=== PATIENT | female | born 1990 | race Two or more races ===

== ENCOUNTER → 2020-01-27 | Outpatient (CLI) | payer MEDICAID, OTHER ==
[2015-04-03 11:30] VITALS: BP 100/73
[~2020-01-27] MED LIST: HYDR-3164 PO; NAPR500T8 PO
--- NOTE | 2020-01-27 16:53 | RAD ---
EXAM: Ultrasound OB Greater than 14 weeks INDICATION: Reason: SIZE AND DATES / Spl. Instructions: / History: TECHNIQUE: Real-time obstetrical ultrasound was performed with permanent freeze-frame documentation. COMPARISON: None. FINDINGS: POSITION: Breech HEART RATE: 1 53 bpm RENE: Normal cm PLACENTA: Anterior grade 1 CERVICAL LENGTH: 3.8 cm MATERNAL UTERUS: Unremarkable. MATERNAL ADNEXA: Unremarkable. AGE/DATES: Gestational Age by LMP: 24 weeks 0 days Gestation Age by US: 24 weeks 1 day EDC by LMP: May 18, 2020 EDC by US: May 17, 2020 WEIGHT: 689 grams +/- 102 grams PERCENTILE WEIGHT: 48%. BIOMETRIC PARAMETERS: BPD: 5.7 cm corresponding with 23 weeks 2 days HC: 22.0 cm corresponding with 24 weeks 1 day AC: 19.9 cm corresponding with 24 weeks 4 days FL: 4.4 cm corresponding with 24 weeks 2 days ANATOMY: CARDIAC: Normal four chamber heart. Normal right and left ventricular outflow tracts. UMBILICAL CORD: Normal 3 vessel cord. Normal cord insertion. BRAIN: Unremarkable. NOSE/LIPS: Unremarkable. SPINE: Unremarkable. EXTREMITIES: Unremarkable. STOMACH: Unremarkable. KIDNEYS: Unremarkable. BLADDER: Unremarkable. IMPRESSION: Normal OB ultrasound demonstrating a single viable fetus in breech position. Estimated gestational age of 24 weeks 1 day and EDC of May 17, 2020. Electronically signed by: Brian Tatum MD (01/27/2020 4:50 PM) [id number]
== END | disposition home or self-care (01) ==
LOC: US 10:12
PROVIDERS: ATTEND Obstetrics & Gynecology
DX: O26.842 Uterine size-date discrepancy, second trimester (principal); Z3A.24 24 weeks gestation of pregnancy
CPT/HCPCS: 76805

== ENCOUNTER 2020-06-20 22:45 | Emergency (ER) | payer OTHER ==
[~2020-06-20] VITALS: Ht 160 cm; Wt 61.4 kg
[2020-06-20] MEDS ORDERED: ONDANSETRON PF 4 MG/2 ML VIAL. IVP ONE (23:45)
[2020-06-20] MEDS ORDERED: IBUPROFEN 400 MG TABLET. PO ONE (23:45)
[2020-06-20] MEDS ORDERED: IV NORMAL SALINE 1000ML BAG 1,000 ML IV SCH (23:45)
[2020-06-20 23:49] LABS: BILIRUBIN,URINE NEGATIVE (NEG); CLARITY,URINE CLEAR; COLOR,URINE YELLOW; NITRITE,URINE NEGATIVE (NEG); PROTEIN,URINE NEGATIVE (NEG-TRACE); UROBILINOGEN,URINE 0.2 mg/dL (0.2 mg/dL)
[2020-06-20 23:57] LABS: BACTERIA,URINE MOD /HPF (0-FEW); RBC,URINE 0 /HPF (0-2); WBC,URINE >40 /HPF (0-4)
--- NOTE | 2020-06-21 00:01 | PHYS DOC ---
Past Medical History Past Medical History: No Pertinent History Past Surgical History: No Surgical History Smoking Status: Never Smoker Alcohol Use: None Adult General Chief Complaint Chief Complaint: FEVER HPI HPI Patient is a 29 approximately 1-1/2 months now presenting the emergency department complaint of new onset of flulike illness. Patient states that over the last 3 days she developed worsening sensation of generalized fatigue, nausea without vomiting or diarrhea. During that time she also deve loped mild left-sided headache and nasal congestion. Over the last 24 hours he developed a sensation of right lower quadrant abdominal pain. Does admit to subjective fever and chills at home. Denies any dizziness or lightheadedness. Review of Systems Review of Systems Constitutional: Denies fever or chills [] Eyes: Denies change in visual acuity, redness, or eye pain [] HENT: Denies nasal congestion or sore throat [] Respiratory: Denies cough or shortness of breath [] Cardiovascular: No additional information not addressed in HPI [] GI: Denies abdominal pain, nausea, vomiting, bloody stools or diarrhea [] : Denies dysuria or hematuria [] Musculoskeletal: Denies back pain or joint pain [] Integument: Denies rash or skin lesions [] Neurologic: Denies headache, focal weakness or sensory changes [] Endocrine: Denies polyuria or polydipsia [] All other systems were reviewed and found to be within normal limits, except as documented in this note. Current Medications Current Medications Current Medications Medications (Trade) Dose Ordered Sig/Althea Start Time Stop Time Status Last Admin Dose Admin Ibuprofen (Motrin) 400 mg 1X ONCE 06/20/20 23:45 06/20/20 23:46 DC 06/21/20 00:19 400 MG Ondansetron HCl (Zofran) 4 mg 1X ONCE 06/20/20 23:45 06/20/20 23:46 DC 06/21/20 00:20 4 MG Sodium Chloride 1,000 ml @ 1,000 mls/hr Q1H 06/20/20 23:45 06/21/20 00:44 DC 06/21/20 00:19 1,000 MLS/HR Allergies Allergies Allergies Coded Allergies Type Severity Reaction Last Updated Verified No Known Drug Allergies 04/01/15 No Physical Exam Physical Exam Constitutional: Well developed, well nourished, no acute distress, non-toxic appearance. [] HENT: Normocephalic, atraumatic, bilateral external ears normal, oropharynx moist, no oral exudates, nose normal. [] Eyes: PERRLA, EOMI, conjunctiva normal, no discharge. [] Neck: Normal range of motion, no tenderness, supple, no stridor. [] Cardiovascular:Heart rate regular rhythm, no murmur [] Lungs & Thorax: Bilateral breath sounds clear to auscultation [] Abdomen: Bowel sounds normal, soft, very mild right upper quadrant tenderness, no masses, no pulsatile masses. [] Skin: Warm, dry, no erythema, no rash. [] Back: No tenderness, no CVA tenderness. [] Extremities: No tenderness, no cyanosis, no clubbing, ROM intact, no edema. [] Neurologic: Alert and oriented X 3, normal motor function, normal sensory function, no focal deficits noted. [] Psychologic: Affect normal, judgement normal, mood normal. [] Current Patient Data Vital Signs Vital Signs Date Time Temp Pulse Resp B/P (MAP) Pulse Ox O2 Delivery O2 Flow Rate FiO2 06/21/20 00:33 117 18 111/73 (86) 100 Room Air 06/20/20 23:35 102.7 102.7 Lab Values Laboratory Tests Test 06/20/20 23:41 06/20/20 23:45 06/21/20 00:25 Urine Collection Type Unknown Urine Color Yellow Urine Clarity Clear Urine pH 6.0 (<5.0-8.0) Urine Specific [place] <=1.005 (1.000-1.030) Urine Protein Negative mg/dL (NEG-TRACE) Urine Glucose (UA) Negative mg/dL (NEG) Urine Ketones (Stick) Negative mg/dL (NEG) Urine Blood Trace (NEG) Urine Nitrite Negative (NEG) Urine Bilirubin Negative (NEG) Urine Urobilinogen Dipstick 0.2 mg/dL (0.2 mg/dL) Urine Leukocyte Esterase Moderate (NEG) Urine RBC 0 /HPF (0-2) Urine WBC >40 /HPF (0-4) Urine Squamous Epithelial Cells Mod /LPF Urine Bacteria Mod /HPF (0-FEW) Urine Mucus Mod /LPF POC Urine HCG, Qualitative Hcg negative (Negative) White Blood Count 11.7 x10^3/uL (4.0-11.0) H Red Blood Count 5.30 x10^6/uL (3.50-5.40) Hemoglobin 13.1 g/dL (12.0-15.5) Hematocrit 40.4 % (36.0-47.0) Mean Corpuscular Volume 76 fL (79-100) L Mean Corpuscular Hemoglobin 25 pg (25-35) Mean Corpuscular Hemoglobin Concent 32 g/dL (31-37) Red Cell Distribution Width 18.9 % (11.5-14.5) H Platelet Count 210 x10^3/uL (140-400) Neutrophils (%) (Auto) 88 % (31-73) H Lymphocytes (%) (Auto) 5 % (24-48) L Monocytes (%) (Auto) 7 % (0-9) Eosinophils (%) (Auto) 0 % (0-3) Basophils (%) (Auto) 1 % (0-3) Neutrophils # (Auto) 10.2 x10^3/uL (1.8-7.7) H Lymphocytes # (Auto) 0.6 x10^3/uL (1.0-4.8) L Monocytes # (Auto) 0.8 x10^3/uL (0.0-1.1) Eosinophils # (Auto) 0.0 x10^3/uL (0.0-0.7) Basophils # (Auto) 0.1 x10^3/uL (0.0-0.2) Platelet Estimate Pending Sodium Level 138 mmol/L (136-145) Potassium Level 3.1 mmol/L (3.5-5.1) L Chloride Level 103 mmol/L (98-107) Carbon Dioxide Level 24 mmol/L (21-32) Anion Gap 11 (6-14) Blood Urea Nitrogen 6 mg/dL (7-20) L Creatinine 0.9 mg/dL (0.6-1.0) Estimated GFR (Cockcroft-Gault) 75.1 BUN/Creatinine Ratio 7 (6-20) Glucose Level 148 mg/dL (70-99) H Calcium Level 8.7 mg/dL (8.5-10.1) Total Bilirubin 0.5 mg/dL (0.2-1.0) Aspartate Amino Transferase (AST) 22 U/L (15-37) Alanine Aminotransferase (ALT) 16 U/L (14-59) Alkaline Phosphatase 80 U/L (46-116) Creatine Kinase 46 U/L (26-192) Total Protein 8.0 g/dL (6.4-8.2) Albumin 3.5 g/dL (3.4-5.0) Albumin/Globulin Ratio 0.8 (1.0-1.7) L Lipase 120 U/L (73-393) Influenza Type A Antigen Negative (NEGATIVE) Influenza Type B Antigen Negative (NEGATIVE) Laboratory Tests 06/21/20 00:25 Laboratory Tests 06/21/20 00:25 EKG EKG [] Radiology/Procedures Radiology/Procedures [] Course & Med Decision Making Course & Med Decision Making Pertinent Labs and Imaging studies reviewed. (See chart for details) 29F 1 month apart and not complaining of new onset of headache, flulike illness consisting of abdominal pain, generalized fatigue and body aches. Will she work-up with basic labs including a CBC, CMP, abdominal evaluation and KUB to make sure that there is no significant underlying etiology. Labs with urinalysis demonstrating new onset urinary tract infection. I also reevaluated the patient was stating that she has been having some pain and tenderness of the left breast. Examination is most consistent with an acute mastitis. At this time will discharge home with a course of antibiotics to treat for both Dragon Disclaimer Dragon Disclaimer This electronic medical record was generated, in whole or in part, using a voice recognition dictation system. Departure Departure Impression: Primary Impression: Mastitis, left, acute Additional Impression: Urinary tract infection Disposition: 01 DC HOME SELF CARE/HOMELESS Condition: GOOD Referrals: NO PCP (PCP) Patient Instructions: Mastitis, Urinary Tract Infection Additional Instructions: EMERGENCY DEPARTMENT GENERAL DISCHARGE INSTRUCTIONS Thank you for coming to [facility] Emergency Department (ED) today and trusting us with you care. We trust that you had a positive experience in our Emergency Department. If you wish to speak to the department management, you may call the Director at [phone]. YOUR FOLLOW UP INSTRUCTIONS ARE FOLLOWS: 1. Do you have a private Doctor? If you do not have a private doctor, please ask for a resource list of physicians or clinics that may be able to assist you with follo w up care. 2. The Emergency Physicain has interpreted your x-rays. The X-Ray specialist will also review them. If there is a change in the findings, you will be notified in 48 hours when at all possible. 3. A lab test or culture has been done, your results will be reviewed and you will be notified if you need a change in treatment. ADDITIONAL INSTRUCTIONS AND INFORMATION: 1. Your care today has been supervised by a physician who is specially trained in emergency care. Many problems require more than one evaluation for a complete diagnosis and treatment. We recommend that you schedule your follow up appointment as recommended to ensure complete treatment of you illness or injury. If you are unable to obtain follow up care and continue to have a problem, or if your condition worsens, we recommend that you return to the ED. 2. We are not able to safely determine your condition over the phone nor are we able to give sound medical advice over the phone. For these safety reasons, if you call for medical advice we will ask you to come to the ED for further evaluation. 3. If you have any questions regarding these discharge instructions please call the ED at [phone]. SAFETY INFORMATION: In the interest of safety, wellness, and injury prevention; we encourage you to wear your sealbelt, if you smoke; quite smoking, and we encourage family to use a pro tective helmet for bicycling and other sporting events that present an increased risk for head injury. IF YOUR SYMPTOMS WORSEN OR NEW SYMPTOMS DEVELOP, OR YOU HAVE CONCERNS ABOUT YOUR CONDITION; OR IF YOUR CONDITION WORSENS WHILE YOU ARE WAITING FOR YOUR FOLLOW UP APPOINTMENT; EITHER CONTACT YOUR PRIMARY CARE DOCTOR, THE PHYSICIAN WHOSE NAME AND NUMBER YOU WERE GIVEN, OR RETURN TO THE ED IMMEDIATELY. Scripts Cephalexin (CEPHALEXIN) 500 Mg Capsule 1 CAP PO QID for 7 Days, #28 CAP Prov: LAW DEWITT MD 06/21/20 Problem Qualifiers LAW DEWITT MD Jun 21, 2020 00:01
--- NOTE | 2020-06-21 00:32 | RAD ---
ACUTE ABDOMEN SERIES History: Abdominal pain. Comparison: None. Findings: Frontal chest and supine and upright views of the abdomen. Cardiomediastinal silhouette is normal. There is no pleural effusion or pneumothorax. The lungs are clear. No pneumoperitoneum is identified. There is no dilated small bowel. There is moderate colon stool vol ume. Bowel gas pattern is nonobstructive. No obvious organomegaly. Bones unremarkable. IMPRESSION: 1. No acute cardiopulmonary process. 2. Nonobstructive bowel gas pattern. 3. Moderate colon stool volume suggests constipation. Electronically signed by: Arun Barlow MD (06/21/2020 12:29 AM) [facility]
[2020-06-21 00:35] LABS: BASO # 0.1 x10^3/uL (0.0-0.2); BASO % 1 % (0-3); EOS % 0 % (0-3); HEMATOCRIT 40.4 % (36.0-47.0); HEMOGLOBIN 13.1 g/dL (12.0-15.5); LYMPH # 0.6 x10^3/uL (1.0-4.8); LYMPH % 5 % (24-48); MEAN CORPUSCULAR HEMOGLOBIN 25 pg (25-35); MEAN CORPUSCULAR HGB CONC 32 g/dL (31-37); MEAN CORPUSCULAR VOLUME 76 fL (79-100); MONO # 0.8 x10^3/uL (0.0-1.1); MONO % 7 % (0-9); NEUT # 10.2 x10^3/uL (1.8-7.7); NEUT % 88 % (31-73); PLATELET COUNT 210 x10^3/uL (140-400); RED CELL DISTRIBUTION WIDTH 18.9 % (11.5-14.5); WHITE BLOOD COUNT 11.7 x10^3/uL (4.0-11.0)
[2020-06-21 00:51] LABS: CALCIUM 8.7 mg/dL (8.5-10.1); CREATININE 0.9 mg/dL (0.6-1.0); GFR 75.1; POTASSIUM 3.1 mmol/L (3.5-5.1)
[2020-06-21 00:54] LABS: ALBUMIN 3.5 g/dL (3.4-5.0); ALBUMIN/GLOBULIN RATIO 0.8 (1.0-1.7); TOTAL BILIRUBIN 0.5 mg/dL (0.2-1.0)
[2020-06-21 00:55] LABS: INFLUENZA A PATIENT NEGATIVE (NEGATIVE); INFLUENZA B PATIENT NEGATIVE (NEGATIVE)
[2020-06-21] MEDS ORDERED: CEPH500C PO (01:28)
[2020-06-21 01:33] VITALS: BP 109/69
[2020-06-21 04:47] LABS: % BANDS 7 % (0-9); % LYMPHS 9 % (24-48); % MONOS 5 % (0-10); % SEGS 79 % (35-66); PLT ESTIMATE ADEQUATE (ADEQUATE); TOXIC VACUOLATION SLIGHT
--- NOTE | 2020-06-22 09:42 | NUR ---
IP: Informed pt of negative COVID test. pt verbalized understanding.
== END 2020-06-21 01:42 | disposition home or self-care (01) ==
LOC: ER 22:45
DX: N39.0 Urinary tract infection, site not specified (principal); N61.0 Mastitis without abscess; Z20.822 Contact with and (suspected) exposure to COVID-19; R10.31 Right lower quadrant pain; R11.0 Nausea; R09.81 Nasal congestion
CPT/HCPCS: 36415; 74022; 80053; 81001; 81025; 82550; 83605; 83690; 85007; 85025; 87804; 96361; 96374; 99285; C9803; J2405; J7030; U0003

== ENCOUNTER → 2020-07-09 | Outpatient (CLI) | payer OTHER ==
[2020-06-21 01:33] VITALS: BP 109/69
[~2020-07-09] MED LIST changes: +CEPH500C PO
--- NOTE | 2020-07-09 15:24 | RAD ---
EXAM: Pelvic sonogram. HISTORY: Right pelvic pain. Urinary tract infection. TECHNIQUE: Transvaginal sonographic imaging of the pelvis was performed. COMPARISON: None. FINDINGS: The uterus measures 6.6 x 5.9 x 4.5 cm. The endometrial stripe measures 4.7 mm thickness. T he ovaries are normal in size and demonstrate normal blood flow. There are small bilateral ovarian an tral follicles. There is trace pelvic free fluid. IMPRESSION: 1. Trace pelvic free fluid, within physiologic limits. 2. Otherwise, unremarkable pelvic sonogram. Electronically signed by: Vivi Mendoza MD (07/09/2020 3:22 PM) [id number]
== END ==
LOC: US 14:00
PROVIDERS: ATTEND Obstetrics & Gynecology
DX: N83.8 Other noninflammatory disorders of ovary, fallopian tube and broad ligament (principal); N39.0 Urinary tract infection, site not specified
CPT/HCPCS: 76830